=== PATIENT | female | born 2000 | race Caucasian/White ===

== ENCOUNTER 2021-01-09 01:28 | Inpatient (IN) | payer MEDICAID ==
[~2021-01-09] VITALS: Ht 165.1 cm; Wt 104.5 kg
[~2021-01-09 01:28] MED LIST: PHENERGAN50 MG RC; ZOFRAN ODT4 MG/UDTAB PO
[2021-01-09 02:10] LABS: BACTERIA FEW HPF (<MOD); BILIRUBIN NEGATIVE (NEGATIVE); KETONE NEGATIVE mg/dL (< 1+); NITRITE NEGATIVE (NEGATIVE); SQUAMOUS EPITHELIAL 9 HPF (0-4); UROBILINOGEN 3 mg/dL (< 2); WHITE CELLS - URINE 110 HPF (0-4)
[2021-01-09] MEDS ORDERED: PRENAVITE1 TAB PO (04:15)
[2021-01-09 04:30] VITALS: BP 125/76; Ht 165.1 cm; Wt 104.5 kg
[2021-01-09 04:37] LABS: HEMATOCRIT 32.8 % (36.0-48.0); MCH 27.5 pg (26.0-34.0); MCHC 33.4 g/dL (31.0-37.0); MCV 82.2 fL (80.0-100.0); MEAN PLATELET VOLUME 7.3 fL (7.4-10.4); RBC 3.98 10x6/uL (4.00-5.40); RDW 15.3 % (11.5-14.5)
[2021-01-09 04:50] LABS: UDS - AMPHET NEGATIVE QUAL (NEGATIVE); UDS - BARB NEGATIVE QUAL (NEGATIVE); UDS - BENZO NEGATIVE QUAL (NEGATIVE); UDS - COCAINE NEGATIVE QUAL (NEGATIVE); UDS - OPIATE NEGATIVE QUAL (NEGATIVE); UDS - PCP NEGATIVE QUAL (NEGATIVE); UDS - THC NEGATIVE QUAL (NEGATIVE)
[2021-01-09 17:02] LABS: HEMATOCRIT 30.5 % (36.0-48.0); HEMOGLOBIN 9.9 g/dL (12-16)
[2021-01-09 19:25] VITALS: BP 108/61
--- NOTE | 2021-01-09 19:25 | NUR ---
PT SITTING UP IN BED. A,A,OX4. VSS. PIV IN RT WRIST SALINE LOCKED,C/D/I. SEE FULL ASSESSMENT PER FLOWSHEET. FF,U1. SMALL AMOUNT RUBRA LOCHIA ON PERIPADS. PT STATES PAIN IS NOW 1/10. PT DENIES NEEDS AT THIS TIME. BED LOWERED, CALL LIGHT WITHIN REACH.
--- NOTE | 2021-01-09 20:52 | NUR ---
PT RESTING WITH EYES CLOSED, BREATHING NONLABORED.
--- NOTE | 2021-01-09 22:30 | NUR ---
PT RESTING WITH EYES CLOSED, BREATHING NONLABORED.
--- NOTE | 2021-01-10 00:03 | NUR ---
TORADOL ADMINSITERED PER EMAR. PT STATES PAIN IS STILL /. DENIES NEEDS AT THIS TIME. CALL LIGHT WITHIN REACH.
--- NOTE | 2021-01-10 02:46 | NUR ---
PT RESTING WITH EYES CLOSED, BREATHING NONLABORED.
--- NOTE | 2021-01-10 04:10 | NUR ---
PT FEEDING INFANT AT BREAST. PT STATES SHE USED THE BR AND CHANGED OUT PERIPADS,TUCKS AND DERMAPLAST APPLIED TO PERINEUM. ICE WATER PROVIDED. PT DENIES NEEDS AT THIS TIME. PT STATES PAIN IS 3/10 BUT DOES NOT WISH TO TAKE PAIN MEDICATION AT THIS TIME. CALL LIGHT WITHIN REACH.
[2021-01-10 06:06] LABS: BASOPHILS 0.2 % (0-2); EOSINOPHILS 0.5 % (0-7); HEMATOCRIT 26.2 % (36.0-48.0); HEMOGLOBIN 8.6 g/dL (12-16); LYMPHOCYTES 16.6 % (15-50); MCH 27.3 pg (26.0-34.0); MCHC 32.9 g/dL (31.0-37.0); MCV 83.1 fL (80.0-100.0); MONOCYTES 6.3 % (2-11); NEUTROPHILS 76.4 % (40-80); RDW 15.1 % (11.5-14.5); WBC 8.8 10x3/uL (4.8-10.8)
[2021-01-10 06:14] LABS: PLATELET COUNT 183 10x3/uL (130-400); RBC 3.15 10x6/uL (4.00-5.40)
--- NOTE | 2021-01-10 06:16 | NUR ---
TORADOL ADMINSITERED PER EMAR. PERICARE DONE, TUCKS AND PERIPADS CHANGED. FF,MIDLINE UU. SMALL TO MODERATE AMOUNT RUBRA LOCHIA NOTED ON PERIPADS. VSS. PT DENIES NEEDS AT THIS TIME.
--- NOTE | 2021-01-10 06:30 | NUR ---
DR SETHI NOTIFIED OF LAB RESULTS. LABS REVIEWED BY . NEW ORDER RECEIVED TO RECHECK H/H AT 1030.
[2021-01-10 06:36] VITALS: BP 97/57
[2021-01-10 07:45] VITALS: BP 103/57
--- NOTE | 2021-01-10 07:45 | NUR ---
PT AMBULATORY IN ROOM. VSS. AAO X 3. HRRR WITHOUT AUDIBLE MURMUR. BBS CLEAR. BS X 4. ABDOMEN SOFT/NON-DISTENDED. FUNDUS FIRM AT U/1. RUBRA LOCHIA SMALL AMT. NO CLOTS OR HEAVY BLEEDING PER PT STATES. PT DENIES HAVING BM. DENIES PAIN. STATES "I'M JUST SORE". PT STATES "IT'S BETTER SINCE I'VE BEEN MOVING AROUND". PERINEUM WITHOUT EDEMA NOTED. NEG HOMANS' SIGN. PPP. MILD, NON-PITTING EDEMA NOTED TO BLE. SL TO LEFT WRIST SITE CLEAR. SR UP X 2. CALL LIGHT IN REACH.
--- NOTE | 2021-01-10 09:20 | NUR ---
PT LYING IN SEMI-LIVE'S POSITION IN BED. EYES CLOSED. RESP NON-LABORED. PT NOT DISTURBED TO ALLOW FOR REST. SR UP X 2. CALL LIGHT IN REACH.
[2021-01-10 10:15] LABS: HEMATOCRIT 27.2 % (36.0-48.0); HEMOGLOBIN 8.9 g/dL (12-16)
--- NOTE | 2021-01-10 11:16 | NUR ---
PT SITTING UP IN BED. QUESTIONS ANSWERED. DENIES NEEDS OR C/O.
--- NOTE | 2021-01-10 12:24 | NUR ---
PT SITTING UP IN BED. WATCHING TV. TORADOL 10 MG GIVEN PO ORDERED. PT INSTRUCTED ON MED. VERBALIZES UNDERSTANDING.
--- NOTE | 2021-01-10 13:05 | NUR ---
DR SETHI VISITS WITH PT.
[2021-01-10] MEDS ORDERED: PERCOCET 5-3251 TAB PO (13:25)
[2021-01-10] MEDS ORDERED: IBUPROFEN800 MG PO (13:25)
--- NOTE | 2021-01-10 14:30 | NUR ---
PT SITTING UP IN BED. WATCHES TV. DENIES PAIN OR NEEDS. STATES RIDE WON'T BE HERE UNTIL AFTER 5 PM.
--- NOTE | 2021-01-10 16:00 | NUR ---
DISCHARGE INSTRUCTIONS GIVEN TO PT. PT VERBALIZES UNDERSTANDING OF ALL INSTRUCTIONS. COPIES GIVEN TO PT. PT GIVEN RX FOR NORCO AND IBUPROFEN. PT DECLINES MMR VACCINE. SL DC'D WITH [employer] INTACT. PRESSURE BANDAGE TO SITE. PT PREPARES FOR DISCHARGE.
--- NOTE | 2021-01-10 18:35 | NUR ---
PT READY FOR DISCHARGE. DISCHARGED IN STABLE CONDITION WITH VIA WHEELCHAIR PER [facility] BRAUN LPN TO PRIVATE VEHICLE.
== END 2021-01-10 18:35 | disposition home or self-care (01) | DRG 807 ==
LOC: D.LDO 01:28 → D.LD 04:09
PROVIDERS: ADMIT Obstetrics & Gynecology; ATTEND Obstetrics & Gynecology
PROC: 10E0XZZ Delivery of Products of Conception, External Approach (ICD-10-PCS; principal; 2021-01-09)
PROC: 0UQMXZZ Repair Vulva, External Approach (ICD-10-PCS; 2021-01-09)
PROC: 3E033VJ Introduction of Other Hormone into Peripheral Vein, Percutaneous Approach (ICD-10-PCS; 2021-01-09)
DX: O70.0 First degree perineal laceration during delivery (principal); Z37.0 Single live birth; Z3A.39 39 weeks gestation of pregnancy; K21.9 Gastro-esophageal reflux disease without esophagitis